=== PATIENT | male | born 1930 | race Caucasian/White ===

== ENCOUNTER 2017-02-01 19:54 | Emergency (ER) | payer MEDICARE, BC ==
[~2017-02-01 19:54] MED LIST: ASPIR 8181 M1 PO; ASPIRIN EC81 MG PO; ATORVASTATIN CA20 M1 PO; BUSPIRONE HCL15 M2 PO; CEFAZOLIN1 GM/10 M1 IV; CENTRUM SILVER1 EAC3 PO; COUMADIN5 M2 PO; COUMADIN7.5 M1 PO; FLOMAX0.4 M1 PO; KEFLEX500 M4 PO; LEVAQUIN750 M1 PO; LOVENOX40 MG/0.1 SC; NITROGLYCERIN0.4 M2 SL; NORCO 5-325 TA1 EACH PO; PERCOCET 5-3251 EACH PO; PLAVIX75 M1 PO; PRIMIDONE50 M1 PO; RIFADIN300 M1 PO; SERTRALINE HCL100 M5 PO; SODIUM CHLORIDE10 M2 IJ; TOPROL XL25 M1 PO; VITAMIN D2000 UNIT PO; ZOFRAN4 M2 PO; ZOLPIDEM TART PO
[2017-02-01 22:47] LABS: BASO % 0.2 % (0-2); EOS % 3.7 % (0-7); EOSINOPHIL ABSOLUTE COUNT 0.2 tho/cmm (0.0-0.7); HCT-HEMATOCRIT 38.1 % (36.0-53.5); HGB-HEMOGLOBIN 12.6 gm/dl (13.5-17.0); IMMATURE GRANULOCYTES ABSOLUTE 0.01 tho/cmm (0-0.03); IMMATURE GRANULOCYTES PERCENT 0.2 % (0-0.3); INR 1.6 INR (0.9-1.1); LYMPH % 52.9 % (20-45); LYMPH ABSOLUTE COUNT 2.1 tho/cmm (0.8-4.5); MCHC MEAN CORPUSCULAR HGB CONC 33.1 % (32.0-36.0); MCV (MEAN CELL VOLUME) 93.8 fl (82.0-96.0); MEAN PLATELET VOLUME 9.7 cmc (9.4-12.4); MONO % 0.2 % (0-12); NEUTROPHIL ABSOLUTE COUNT 1.7 tho/cmm (1.6-8.0); NEUTROPHIL-AUTOMATED 1.7 tho/cmm (1.6-8.0); NEUTROPHILS % 42.8 % (40-80); PLATELET COUNT 112 tho/cmm (150-450); RED BLOOD COUNT 4.06 mil/cmm (4.40-5.70); RED CELL DISTRIBUTION WIDTH 13.4 % (12.4-16.4)
[2017-02-01 22:57] LABS: ALB/GLOB RATIO 1.1 (0.8-2.0); ALBUMIN 3.4 g/dl (3.5-5.0); ALKALINE PHOSPHATASE 73 U/L (33-138); ALT/SGPT 44 U/L (12-78); ANION GAP 12 mmol/L (0-20); AST/SGOT 35 U/L (10-40); BILIRUBIN,TOTAL 0.4 mg/dl (0.0-1.5); BLOOD UREA NITROGEN 22 mg/dl (6-24); CALCIUM 8.3 mg/dl (8.5-10.5); CARBON DIOXIDE-VENOUS 28 mmol/L (22-32); CHLORIDE 104 mmol/l (96-110); CREATININE 0.95 mg/dl (0.60-1.30); GLUCOSE 114 mg/dL (70-110); POTASSIUM 3.9 mmol/L (3.7-5.1); SODIUM 140 mmol/L (135-145); eGFR VALUE FOR BLACK 84 mL/Min
[2017-02-01] MEDS ORDERED: ZITHROMAX250 M1 PO (23:27)
[2017-02-01] MEDS ORDERED: VENTOLIN HFA18 G2 PO (23:27)
[2017-02-01] MEDS ORDERED: MEDROL4 M1 PO (23:27)
== END 2017-02-01 23:37 ==
LOC: EDMED 19:54
PROVIDERS: Emergency Medicine Emergency Medical Services
DX: J45.909 Unspecified asthma, uncomplicated (principal); I11.9 Hypertensive heart disease without heart failure; Z87.891 Personal history of nicotine dependence; Z98.890 Other specified postprocedural states; Z79.899 Other long term (current) drug therapy
CPT/HCPCS: J2930

== ENCOUNTER 2017-03-08 17:00 | Emergency (ER) | payer MEDICARE, BC ==
[~2017-03-08 17:00] MED LIST changes: +MEDROL4 M1 PO; +VENTOLIN HFA18 G2 PO; +ZITHROMAX250 M1 PO
[2017-03-08] MEDS ORDERED: COUMADIN7.5 M1 PO (17:14)
== END 2017-03-08 18:32 ==
LOC: EDMED 17:00
DX: S51.801A Unspecified open wound of right forearm, initial encounter (principal); W23.0XXA Caught, crushed, jammed, or pinched between moving objects, initial encounter; I25.2 Old myocardial infarction; I10 Essential (primary) hypertension; Z86.718 Personal history of other venous thrombosis and embolism; Z86.711 Personal history of pulmonary embolism; Z79.82 Long term (current) use of aspirin; Z79.01 Long term (current) use of anticoagulants; Z79.899 Other long term (current) drug therapy